=== PATIENT | male | born 1975 | race Two or more races ===

== ENCOUNTER 2023-03-03 16:42 | Emergency (ER) | payer MEDICAID, OTHER ==
[~2023-03-03] VITALS: Ht 175.3 cm; Wt 72.6 kg
[2023-03-03 19:34] VITALS: BP 128/62; TEMP 98.1
--- NOTE | 2023-03-03 19:34 | NUR ---
Patient discharged to home in stable condition. Written and verbal after care instructions given. Patient verbalizes understanding of instruction. Pt ambulatory with a steady gait
== END 2023-03-03 19:35 | disposition home or self-care (01) ==
LOC: ER 16:58
DX: S63.613A Unspecified sprain of left middle finger, initial encounter (principal); Z60.2 Problems related to living alone; X58.XXXA Exposure to other specified factors, initial encounter; Y93.22 Activity, ice hockey; Y92.89 Other specified places as the place of occurrence of the external cause; Y99.8 Other external cause status
CPT/HCPCS: 73140-TC